=== PATIENT | male | born 1955 | race Caucasian/White ===

== ENCOUNTER → 2017-09-16 | Day surgery (SDC) | payer BC ==
[~2017-09-16] MED LIST: AMLODIPINE BESYL5 MG PO; BUPIVACAINE 0.5%/EPI 30 ML SDV INJ ONE; CEFAZOLIN SOD 2 GM/D5W 50ML 50 ML IV ONE; CLOBETASOL1 EA/15 GM TOP; CREON DR 3,0001 EACH PO; DEXAMETHASONE SOD PHOS INJ 4 MG/ML VIAL ONE; FENTANYL CITRATE/PF 100MCG/2 ML INJ ONE; KETOROLAC TROMET5 M1 OU; KETOROLAC TROMETHAMINE 30 MG/ML VIAL ONE; LIDOCAINE HCL 2% LOCAL INJ 5 ML SDV VIAL INJ ONE; LIDOCAINE1 EA TOP; MELOXICAM7.5 MG PO; MIDAZOLAM HCL 2 MG/2 ML VIAL ONE; NAPROXEN250 MG PO; ONDANSETRON HCL INJ 2 MG/ML VIAL ONE; PREDNISOLONE ACE5 ML; PROPOFOL IV EMULSION 10 MG/ML 20 ML VIAL ONE; PROTONIX20 MG PO; SEVOFLURANE INHAL SOLN 250 ML PEN BTL ONE
--- OUTSIDE RECORDS SUMMARY | 2017-09-16 09:02 | XMS REPORT ---
Author Author [facility] Address Unknown Phone Unavailable Care Team Providers Care Storm Sash Maker Name Role Phone ROXIE BRYANT Unavailable Unavailable Problems This patient has no known problems. Allergies, Adverse Reactions, Alerts This patient has no known allergies or adverse reactions. Medications This patient has no known medications. Results Test Description Test Time Test Comments Text Results Atomic Results Result Comments CHEST 2 VIEWS [place] [address] Patient Name: KULDEEP TERRAZAS MR #: [id number] : 1955 Age/Sex: 62/M Req #: [id number] Adm Physician: Ordered by: ROXIE BRYANT MD Report #: [id number] Location: OR Room/Bed: Procedure: [id number] DX/CHEST 2 VIEWS Exam Date: Exam Time: REPORT STATUS: Signed PROCEDURE: X-RAY CHEST, TWO VIEWS COMPARISON: 2016. INDICATIONS: PRE OP FINDINGS: Lungs are well-inflated. Linear atelectatic or fibrotic changes in the right lower lung. No consolidation, pleural effusion, or pneumothorax. Stable cardiomediastinal contour with tortuosity and atherosclerotic calcification of the thoracic aorta. No pulmonary edema. No acute osseous abnormality. CONCLUSION : No acute cardiopulmonary abnormality. Dictated by: Vinicio Loya M.D. on 05/25/2017 at 17:27 Electronically approved by: Vinicio Loya M.D. on 05/25/2017 at 17:27 Dictated By: VINICIO LOYA MD 26 Transcribed By: BERONICA on 05/25/171726 COPY TO: ROXIE BRYANT MD MRI RIGHT KNEE WO [place] [address] Patient Name: KULDEEP TERRAZAS MR #: [id number] : 1955 Age/Sex: 62/M Req #: [id number] Adm Physician: Ordered by: ROXIE BRYANT MD Report #: [id number] Location: MRI Room/Bed: Procedure: [id number] MRI/MRI RIGHT KNEE WO Exam Date: 04/17/17 Exam Time : 1410 REPORT STATUS: Signed TECHNIQUE: Magnetic resonance imaging of the RIGHT KNEE was performed WITHOUT injected contrast. HISTORY: Right knee pain COMPARISON: None available. FINDINGS: LIGAMENTS AND TENDONS: ACL: Intact PCL: Intact Collateral ligaments: Intact Iliotibial band: Unremarkable Popliteal tendon: Intact Extensor mechanism: Intact JOINT: Menisci: Medial: Mildly complex tear of the posterior horn adjacent to the root junction seen on sagittal image 21 and coronal image 17. Oblique tear of the body coronal image 15. Mild extrusion. Lateral: Intact Articular Cartilage: Medial Compartment: Partial thickness cartilage loss Lateral Compartment: Partial thickness cartilage loss Patellofemoral Compartment: Partial thickness cartilage loss Joint Fluid: Small joint effusion BONE: No focal or infiltrative bone marrow replacing abnormality. No acute fracture. SOFT TISSUES: Otherwise, unremarkable. IMPRESSION: Medial meniscus tearing of the posterior horn root junction and within the meniscal body resulting in mild extrusion. Tricompartmental partial thickness cartilage loss. Small joint effusion. Signed by: Dr. Daysi Garcia M.D. on 04/17/2017 2:49 PM Dictated By: DAYSI GARCIA MD 48 Transcribed By: KRISTAN on 04/17/171448 COPY TO: ROXIE BRYANT MD
--- NOTE | 2017-09-16 12:53 | Operative Report ---
DATE OF PROCEDURE: September 16, 2017 PREOPERATIVE DIAGNOSES 1. Right knee medial meniscus tear. 2. Right knee degenerative joint disease of the knee. POSTOPERATIVE DIAGNOSES 1. Right knee medial meniscus tear. 2. Right knee lateral meniscus tear. 3. Right knee degenerative joint disease of the knee. 4. Right knee symptomatic medial shelf plica. PROCEDURES PERFORMED 1. Right knee examination under anesthesia. 2. Right knee arthroscopy. 3. Right knee partial medial meniscectomy. 4. Right knee partial lateral meniscectomy. 5. Right knee chondroplasties of patella, trochlea, medial femoral condyle, medial tibial plateau, lateral femoral condyle, lateral tibial plateau, and a resection of medial shelf plica. PLAY BACK OPERATOR: None. ANESTHESIA: General endotracheal intubation anesthesia. IV FLUIDS: Per the anesthesia record. DESCRIPTION OF PROCEDURE: Mr. Sumner was taken to the operating room and placed in the supine position on the operating table. Following induction of general anesthesia as well as endotracheal intubation, the patient's right lower extremity was examined under anesthesia. He was found to have a mild effusion within the knee joint. His ligaments were stable. His knee motion was intact. He has obvious changes about the knee consistent with arthritis. The patient's lower extremity was prepped and draped in the standard surgical fashion. A 2-portal technique was used to provide this patient arthroscopic evaluation of the knee joint. Examination of the suprapatellar pouch, medial and lateral gutters found no evidence of loose bodies. There was, however, evidence of chondromalacia of the patellar and trochlear surfaces. There was also a medial shelf plica interdigitating between the patella and trochlea. The scope was advanced to the medial compartment. Examination of the medial compartment demonstrated a torn posterior horn of the medial meniscus. There was also chondromalacia of the articulating surfaces. A combination of biting forceps and a motorized shaver was used to resect the torn portion of the meniscus. Chondroplasties of the medial femoral condyle and medial tibial plateau were performed at this time. Scope was advanced into the intercondylar notch. The anterior cruciate was identified and found to be intact. Scope was advanced in the lateral compartment. There was chondromalacia of the articulating surfaces. There was also an area of tear in the central aspect of the lateral meniscus. A combination of biting forceps and a motorized shaver was used to resect the torn portion of the meniscus. Chondroplasties of the lateral femoral condyle and lateral tibial plateau were performed at this time. Scope was then placed in the suprapatellar pouch, and chondroplasties of the patella and trochlea were performed. The medial shelf plica was resected. The knee was deflated of its sterile normal saline. Each of the portal sites were closed using 4-0 nylon suture. Portal sites as well as the knee itself were injected with 0.5% Marcaine with epinephrine. Sterile dressings were applied. Patient was awakened and taken to the postanesthesia care unit in stable condition. Job#: [id number]
== END | disposition home or self-care (01) ==
LOC: OR 09:00
PROVIDERS: ATTEND Specialist
DX: S83.241A Other tear of medial meniscus, current injury, right knee, initial encounter (principal); S83.281A Other tear of lateral meniscus, current injury, right knee, initial encounter; M17.11 Unilateral primary osteoarthritis, right knee; M67.51 Plica syndrome, right knee; M22.41 Chondromalacia patellae, right knee; I10 Essential (primary) hypertension; K86.9 Disease of pancreas, unspecified; B19.20 Unspecified viral hepatitis C without hepatic coma; X58.XXXA Exposure to other specified factors, initial encounter; Z01.810 Encounter for preprocedural cardiovascular examination
CPT/HCPCS: 29880; 93005; J1100; J1885; J2001; J2250; J2405

== ENCOUNTER 2017-11-22 12:30 | Observation (INO) | payer BC ==
[~2017-11-22] VITALS: Ht 167.6 cm; Wt 86.2 kg
[~2017-11-22 12:30] MED LIST changes: -BUPIVACAINE 0.5%/EPI 30 ML SDV INJ ONE; -CEFAZOLIN SOD 2 GM/D5W 50ML 50 ML IV ONE; -DEXAMETHASONE SOD PHOS INJ 4 MG/ML VIAL ONE; -FENTANYL CITRATE/PF 100MCG/2 ML INJ ONE; -KETOROLAC TROMETHAMINE 30 MG/ML VIAL ONE; -LIDOCAINE HCL 2% LOCAL INJ 5 ML SDV VIAL INJ ONE; -MIDAZOLAM HCL 2 MG/2 ML VIAL ONE; -ONDANSETRON HCL INJ 2 MG/ML VIAL ONE; -PROPOFOL IV EMULSION 10 MG/ML 20 ML VIAL ONE; -SEVOFLURANE INHAL SOLN 250 ML PEN BTL ONE
[2017-11-22 12:49] VITALS: BP 142/87
[2017-11-22 12:50] VITALS: BP 142/87
[2017-11-22] MEDS ORDERED: ASPIRIN 325 MG TAB PO SCH (15:00)
[2017-11-22 16:34] VITALS: BP 126/88
[2017-11-22] MEDS ORDERED: ONDANSETRON HCL INJ 2 MG/ML VIAL IV PRN (17:30)
[2017-11-22] MEDS ORDERED: ACETAMINOPHEN 325 MG TAB PO PRN (17:30)
[2017-11-22] MEDS ORDERED: HYDRALAZINE HCL 20 MG/ML VIAL IV PRN (17:30)
[2017-11-22] MEDS: FAMOTIDINE 20 MG TAB PO SCH (17:36)
[2017-11-22] MEDS: ASPIRIN 325 MG TAB PO SCH (17:36)
[2017-11-22 20:00] VITALS: BP 126/88
[2017-11-22 20:55] VITALS: BP 113/66
[2017-11-23] VITALS (7 sets, daily range): BP systolic 107–142; BP diastolic 58–83
[2017-11-23 06:27] LABS: BASOPHILS # (AUTO) 0.1 (0.0-0.1); BASOPHILS % 1.2 % (0.0-1.0); EOSINOPHILS # (AUTO) 0.2 (0.0-0.4); EOSINOPHILS % 3.8 % (0.0-6.0); HEMATOCRIT 41.3 % (38.2-49.6); HEMOGLOBIN 14.1 g/dL (14.0-18.0); LYMPHOCYTES # (AUTO) 1.7 (1.0-3.2); LYMPHOCYTES % 27.9 % (18.0-39.1); MEAN CORPUSCULAR HEMOGLOBIN 28.4 pg (28-32); MEAN CORPUSCULAR HGB CONC 34.1 g/dL (31-35); MEAN CORPUSCULAR VOLUME 83.3 fL (81-99); MONOCYTES # (AUTO) 0.7 (0.2-0.8); MONOCYTES % 11.4 % (4.4-11.3); NEUTROPHILS # (AUTO) 3.3 (2.1-6.9); NEUTROPHILS % 55.2 % (38.7-80.0); PLATELET COUNT 214 x10e3/uL (140-360); RED BLOOD COUNT 4.96 x10e6/uL (4.3-5.7); RED CELL DISTRIBUTION WIDTH 12.9 % (11.7-14.4)
[2017-11-23 06:50] LABS: ANION GAP 10.4 mmol/L (8-16); BLOOD UREA NITROGEN 12 mg/dL (7-26); BUN/CREATININE RATIO 11 (6-25); CALCIUM 9.1 mg/dL (8.4-10.2); CARBON DIOXIDE 27 mmol/L (22-29); CHLORIDE 107 mmol/L (98-107); CHOL/HDL RATIO 5.2 (3.9-4.7); CHOLESTEROL 145 MD/DL (0-199); CREATININE, SERUM 1.05 mg/dL (0.72-1.25); EST GLOMERULAR FILTRATION RATE > 60 ML/MIN (60-); GLUCOSE 97 mg/dL (74-118); HDL CHOLESTEROL 28 MG/DL (40-60); LDL CHOLESTEROL 100 MG/DL (60-130); POTASSIUM 4.4 mmol/L (3.5-5.1); SODIUM 140 mmol/L (136-145); TRIGLYCERIDES 85 MG/DL (0-149)
[2017-11-23 06:51] LABS: B-TYPE NATRIURETIC PEPTIDE2 < 10.0 pg/mL (0-100)
[2017-11-23 07:18] LABS: FREE T4 (FREE THYROXINE) 0.93 ng/dL (0.9-1.8); THYROID STIMULATING HORMONE 3.022 uIU/mL (0.350-4.940)
[2017-11-23] MEDS: FAMOTIDINE 20 MG TAB PO SCH (08:15)
[2017-11-23] MEDS: AMLODIPINE BESYLATE 5 MG TAB PO SCH (08:15)
[2017-11-23] MEDS: ASPIRIN 325 MG TAB PO SCH (08:15)
--- NOTE | 2017-11-23 11:40 | Diagnostic Imaging Report ---
Exam: Brain MRI without IV contrast History: TIA, rule out CVA, blurred vision Comparison studies: None Technique: Axial coronal T2 FLAIR, sagittal and axial T2 FS, axial T1 FLAIR, axial T2*GRE and axial DWI. Intravenous contrast: None Findings: Scalp: Normal in signal. No masses. Bone marrow: Normal in signal intensity. Brain sulci: Appropriate for age. Ventricles: Normal in size. No hydrocephalus. Extra axial spaces: No mass, no fluid collection. Parenchyma: No mass, hemorrhage or acute ischemia. A nonspecific 8 mm T2 FLAIR hyperintense focus at the junction of the left precentral and subtle central gyri is without associated restricted diffusion and is most compatible with chronic insult with focal gliosis. Suprasellar region: No abnormalities. Craniocervical junction: Patent foramen magnum. No Chiari malformation. Vessels: Normal flow-voids in the arteries and sinuses. IMPRESSION: 1. No acute ischemia or other acute intracranial abnormalities. 2. Small chronic left inferior precentral insult. Signed by: Dr. Esteban Goodman M.D. on 11/23/2017 11:36 AM
--- NOTE | 2017-11-23 15:11 | Consultation ---
DATE OF CONSULTATION: November 23, 2017 NEUROLOGY CONSULTATION HISTORY OF PRESENT ILLNESS: Mr. Sumner is a 62-year-old right hand dominant man with past medical history significant for hypertension, admitted to [facility] on November 22, 2017, with symptoms concerning for a transient ischemic attack. At approximately 0915 on the day of admission, the patient was standing at [employer] when he experienced the acute onset of diplopia followed by blurred vision and generalized weakness. Mr. Sumner does not report dysarthria, dysphasia, facial droop, hemiparesis, or hemihypesthesia. He does report poor balance and gait impairment, possible dizziness and mild confusion associated with the above symptoms. He does not report a headache associated with the above symptoms. Following symptom onset, a fellow parishioner helped the patient to a chair, where he remained until the symptoms resolved. Mr. Sumner reports spontaneous resolution of the symptoms after approximately 10 minutes. At that time, the patient's helped him to their car and took him to a [facility] emergency center for further evaluation. While in the emergency center, the patient's vital signs and neurological examination were reportedly within normal limits/nonfocal. Blood work and a CT of the brain without contrast were reportedly normal. However, the physician at the [facility] emergency center recommended the patient be transferred to [facility] for admission under observation status for further evaluation and treatment of a suspected transient ischemic attack. Mr. Sumner reports having a syncopal event several months ago. At that time, he underwent cardiac evaluation but not neurological evaluation. Mr. Sumner endorses a history of intermittent dizziness which is further described as lightheadedness. The dizziness is improved by eating something sweet. REVIEW OF SYSTEMS: Confusion, blurred vision, diplopia, generalized weakness, impairment of balance and gait, dizziness. PAST MEDICAL HISTORY: Hypertension, possible osteoarthritis, gastroesophageal reflux disease, hepatitis C (treated), cholelithiasis, eczema. PAST SURGICAL HISTORY: Bilateral cataract surgery in August 2017, right knee arthroscopy in September 2017, surgery to repair a right index finger injury, cardiac catheterization times 2, right foreleg fracture (did not require surgery). PAST HOSPITALIZATIONS: Surgeries/procedures as listed, pancreatitis. FAMILY HISTORY: The patient's paternal and maternal grandparents are . Their medical histories are unknown. The patient's father is from a stroke. The patient's mother is . She had diabetes mellitus, coronary artery disease, and migraines. The patient had three sisters and one brother. The other sister is alive. She does have a history of breast cancer. A 2nd sister is alive and healthy. A 3rd sister is from lymphoma. Mr. Sumner's brother is from an unknown cancer. Mr. Sumner has 2 children, a daughter and a son. Both are alive. His daughter has migraines. His son is healthy. SOCIAL HISTORY: The patient is . He completed school through the 11th grade. 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 The patient does report a remote history of tobacco use. He quit smoking cigarettes approximately 17 years ago. The patient has not consumed alcohol in approximately 30 years. He has not used recreational drugs in approximately 28 years. HOME MEDICATIONS: Amlodipine 5 mg by mouth daily, Protonix 40 mg by mouth daily, clobetasol propionate 0.5% topical, Ketorolac tromethamine 5 mL drops, prednisolone acetate 5 mL drops suspension. ALLERGIES: NO KNOWN DRUG ALLERGIES. NO KNOWN FOOD ALLERGIES. NO KNOWN ALLERGIES TO LATEX. NO KNOWN ALLERGIES TO IODINE OR OTHER CONTRAST MATERIALS. PHYSICAL EXAMINATION: VITAL SIGNS: Height 66 inches, weight 190 pounds, BMI 30.7 kg per meter squared. Blood pressure 137/63 mmHg, pulse 63 beats per minute, respiratory rate 16 breaths per minute, oxygen saturation 96% on room air. GENERAL: The patient is awake and alert, does not appear distressed. Overweight. HEENT: Normocephalic, atraumatic. Pupils are surgical. Moist mucous membranes. NECK: Supple. No appreciable thyromegaly. No appreciable carotid bruits. CARDIOVASCULAR: S1, S2, regular rate and rhythm. Positive for a low-grade systolic ejection murmur. No rubs or gallops. RESPIRATORY: Clear to auscultation bilaterally. No wheezes, rhonchi, or rales. EXTREMITIES: The skin is warm and dry. No clubbing, cyanosis, or edema. The posterior tibial and dorsalis pedis pulses are 2+ and symmetric. SKIN: No rashes or lesions. NEUROLOGIC Memory/Attention: The patient is awake and alert, oriented to person, place, time, and situation. Cranial Nerves: Cranial nerve 1--Not tested. Cranial nerve 2, 3, 4, and 6--Pupils are surgical, extraocular movements intact, no nystagmus. Cranial nerve 5--Sensation to light touch and pinprick is intact in the bilateral V1 through V3 distributions. Strength of the temporalis and masseter muscles is within normal limits. Cranial nerve 7--The face is symmetric as are all facial movements. Strength is within normal limits. Cranial nerve 8--Hearing is intact to finger rub bilaterally. Cranial nerve 9, 10--The soft palate elevates equally and symmetrically. Cranial nerve 11--Normal strength of the bilateral sternocleidomastoid and trapezius muscles. Cranial nerve 12--The tongue protrudes midline and moves symmetrically from side to side. Strength: Bulk is normal. Strength is 5/5 in the bilateral deltoids, biceps, triceps, wrist flexors and extensors, finger flexors and extensors, intrinsic hand muscles, hip flexors, knee flexors and extensors, ankle dorsiflexion and plantarflexion, and intrinsic foot muscles. Tone is normal. DTRs: Deep tendon reflexes are 1+ and symmetric at the triceps, biceps, brachioradialis, patellas, and Achilles. Plantar responses are flexor bilaterally. Sensation: Sensation is intact to light touch and pinprick in both arms and both legs. Cerebellar: Prrgvt-ngxx-eicqur and heel-hines movements are intact without dysmetria or other impairment. Gait: Deferred. Speech: Spontaneous speech is normal without appreciable dysarthria or aphasia. Repetition is intact. Involuntary Movements: None. Pronator Drift: None. LABORATORY DATA: Sodium 140, potassium 4.4, chloride 107, carbon dioxide 27, anion gap 10.4, BUN 12, creatinine 1.05, estimated GFR greater than 60, BUN to creatinine ratio 11, glucose 97, calcium 9.1, magnesium 2.1. B-natriuretic peptide less than 10.0. Hemoglobin A1c 5.2. Total cholesterol 145, triglyceride 85, LDL cholesterol 100, HDL cholesterol 28. TSH 3.022, free T4 0.93. CBC with differential and platelets reveals a white blood cell count of 6.03 with 55.2% neutrophils, 27.9% lymphocytes, 11.4% monocytes, 3.8% eosinophils, and 1.2% basophils. The hemoglobin and hematocrit are 14.1 and 41.3, respectively. The platelet count is 214. DIAGNOSTIC STUDIES: MRI of the brain without contrast November 23, 2017: On my review, there is no evidence of recent large territorial ischemia, hemorrhage, mass, or mass effect. There is a remote lacunar infarct at the junction of the left precentral and central gyri. ASSESSMENT AND PLAN: Mr. Sumner is a 62-year-old right hand dominant man with past medical history significant for hypertension and a remote lacunar infarct (undiagnosed), admitted to [facility] on November 22, 2017, with a posterior circulation transient ischemic attack. At present, the patient's neurological examination is nonfocal. His laboratory data and other diagnostic studies have been reviewed and are documented above. RECOMMENDATIONS: 1. An echocardiogram has been ordered and is pending. 2. Bilateral carotid artery ultrasound with Doppler will be ordered. 3. The patient will be placed on telemetry to evaluate for paroxysmal cardiac arrhythmia. 4. Mr. Sumner will be prescribed aspirin 325 mg by mouth daily for stroke prophylaxis. 5. The patient's blood pressures are at goal. Continue with current antihypertensive medication. 6. The patient's total cholesterol is less than 200. However, his LDL cholesterol is above the recommended goal of 70. The patient will be prescribed atorvastatin 20 mg by mouth at bedtime daily in an effort to bring his LDL cholesterol closer to goal. 7. The patient's hemoglobin A1c is 5.2. No further evaluation or treatment is indicated. 8. GI prophylaxis with Pepcid 20 mg by mouth twice daily before meals as per the primary service. DVT prophylaxis with Lovenox 40 mg subcutaneously daily. 9. Speech and physical therapy consultations will not be ordered because the patient has no focal deficits. 10. Defer treatment of the remaining medical comorbidities to the primary and other services. Thank you for this consultation. I will continue to follow this patient while he remains in the hospital. Time spent: 50 minutes. Job#: [id number] EV THUAN
[2017-11-23] MEDS ORDERED: ENOXAPARIN SOD INJ 40 MG/0.4 ML SYR SC SCH (17:00)
--- NOTE | 2017-11-23 18:49 | History and Physical ---
PRIMARY CARE PHYSICIAN: Dr. Hubbard CHIEF COMPLAINT: Vision changes. HISTORY OF PRESENT ILLNESS: This is a 62-year-old man with a history of hypertension and cigarette use, now while he was at [employer] the patient while standing the patient felt somewhat weak, double vision and then it became blurred. Then he got lightheaded and felt like he was going to pass out. He held on to the alberto next to him. He was taken to the neighbor's. CT scan was obtained, which was negative. Recommended to obtain an MRI and was sent here for further evaluation and management. Currently, the patient is symptom free. All of his symptoms have resolved. Denies any chest pain or shortness of breath. Denies any dizziness. PAST MEDICAL HISTORY: Acute pancreatitis, degenerative joint disease, GERD, hypertension, cigarette use. PAST SURGICAL HISTORY: Cataract surgery in August 2017, knee arthroscopy, leg fracture repair, right index finger. ALLERGIES: PER ELECTRONIC MEDICAL RECORD. FAMILY HISTORY/SOCIAL HISTORY: Patient is . He has 2 children. No alcohol or illicits. Quit cigarettes 17 years ago. MEDICATIONS: Per electronic medical record. REVIEW OF SYSTEMS: Denies any dizziness or chest pain. PHYSICAL EXAMINATION VITAL SIGNS: Have been reviewed. GENERAL: A tired-appearing man resting in bed. HEENT: Anicteric. Pupils respond to light. No oral lesions. CARDIOVASCULAR: Normal S1 and S2. LUNGS: Moderate breath sounds. ABDOMEN: Soft, nontender and nondistended. EXTREMITIES: No edema or calf tenderness. NEUROLOGICAL: He is alert and oriented times 3. Moves all extremities. No focal deficit. Motor strength is 5/5 in all extremities. He has no visual field deficits. SKIN: Dry. PSYCHIATRIC: Normal affect. LABS: Reviewed. MEDICATIONS: Reviewed. ASSESSMENT: This is a 62-year-old man with: 1. Transient ischemic attack. 2. Obesity: Body mass index is 30.7. 4. Chronic brain infarct. 5. Hypertension. 6. Pericardial effusion, trivial. 7. Gastroesophageal reflux disease. 8. Degenerative joint disease. PLAN 1. MRI of the brain is negative. 2. Ultrasound of the carotid negative. 3. History of pericardial effusion. His present ejection fraction is normal at 60% to 65%. 4. Continue aspirin 325 mg. 5. Continue amlodipine. Will continue Lipitor as well. Will obtain a lipid panel. 6. Physical therapy consultation. 7. His urinalysis was negative for any sign of infection. 8. History of cigarette use. The patient quit 17 years ago. 9. Prophylaxis. Will use Lovenox and Pepcid. 10. Disposition. Monitor overnight by telemetry and possible discharge tomorrow morning. Job#: [id number] RI
[2017-11-23] MEDS ORDERED: ATORVASTATIN 20 MG TAB PO SCH (21:00)
[2017-11-24] VITALS: BP 139/83
[2017-11-24 04:00] VITALS: BP 123/58
[2017-11-24 04:33] LABS: BASOPHILS # (AUTO) 0.1 (0.0-0.1); BASOPHILS % 1.1 % (0.0-1.0); EOSINOPHILS # (AUTO) 0.3 (0.0-0.4); HEMOGLOBIN 14.5 g/dL (14.0-18.0); LYMPHOCYTES # (AUTO) 1.7 (1.0-3.2); LYMPHOCYTES % 25.9 % (18.0-39.1); MEAN CORPUSCULAR HEMOGLOBIN 28.5 pg (28-32); MEAN CORPUSCULAR HGB CONC 34.5 g/dL (31-35); MEAN CORPUSCULAR VOLUME 82.5 fL (81-99); MONOCYTES # (AUTO) 0.7 (0.2-0.8); MONOCYTES % 11.3 % (4.4-11.3); NEUTROPHILS # (AUTO) 3.7 (2.1-6.9); NEUTROPHILS % 56.9 % (38.7-80.0); PLATELET COUNT 213 x10e3/uL (140-360); RED BLOOD COUNT 5.09 x10e6/uL (4.3-5.7); RED CELL DISTRIBUTION WIDTH 12.7 % (11.7-14.4)
[2017-11-24 04:48] LABS: ANION GAP 12.1 mmol/L (8-16); BLOOD UREA NITROGEN 12 mg/dL (7-26); BUN/CREATININE RATIO 11 (6-25); CALCIUM 9.1 mg/dL (8.4-10.2); CARBON DIOXIDE 24 mmol/L (22-29); CHLORIDE 103 mmol/L (98-107); CREATININE, SERUM 1.07 mg/dL (0.72-1.25); EST GLOMERULAR FILTRATION RATE > 60 ML/MIN (60-); GLUCOSE 103 mg/dL (74-118); MAGNESIUM 2.1 MG/DL (1.3-2.1); POTASSIUM 4.1 mmol/L (3.5-5.1); SODIUM 135 mmol/L (136-145)
[2017-11-24 05:02] LABS: CHOL/HDL RATIO 5.6 (3.9-4.7)
[2017-11-24] MEDS ORDERED: FAMOTIDINE 20 MG TAB PO SCH (07:30)
[2017-11-24] MEDS ORDERED: PANTOPRAZOLE SOD 40 MG TABEC PO SCH (07:30)
[2017-11-24 07:35] VITALS: BP 123/58
[2017-11-24 08:24] VITALS: BP 161/87
[2017-11-24] MEDS: ASPIRIN 325 MG TAB PO SCH (09:00)
[2017-11-24] MEDS ORDERED: CLOBETASOL PROPIONATE 0.05% CRM 15 GM TUBE TOP SCH (09:00)
[2017-11-24] MEDS ORDERED: PANTOPRAZOLE SODIUM PO SCH (09:00)
[2017-11-24] MEDS: AMLODIPINE BESYLATE 5 MG TAB PO SCH (09:00)
[2017-11-24] MEDS ORDERED: ASPIRIN325 MG PO (09:05)
[2017-11-24] MEDS ORDERED: LIPITOR20 MG PO (09:05)
[2017-11-24] MEDS ORDERED: NORVASC10 MG PO (09:19)
[2017-11-24] MEDS ORDERED: AMLODIPINE BESYLATE 5 MG TAB PO ONE (09:30)
[2017-11-24] MEDS ORDERED: ENOXAPARIN SOD INJ 40 MG/0.4 ML SYR SC SCH (17:00)
--- NOTE | 2017-11-24 19:00 | Discharge Summary ---
ADMITTING DIAGNOSES 1. Transient ischemic attack. 2. Obesity. 3. Hypertension. 4. Pericardial effusion. 5. Gastroesophageal reflux disease. 6. Degenerative joint disease. DISCHARGE DIAGNOSES 1. Transient ischemic attack. 2. Obesity. 3. Hypertension. 4. Pericardial effusion. 5. Gastroesophageal reflux disease. 6. Degenerative joint disease. 7. Hyperlipidemia. HISTORY: The patient has a history of pancreatitis, degenerative joint disease, GERD, hypertension, and cigarette use. Surgical history includes cataract surgery in August 2017, knee arthroscopy, leg fracture repair, right index finger surgery. HOSPITAL COURSE: This 62-year-old male said that while at [employer] he was standing and felt somewhat weak. Double vision occurred, and then it became blurry. He got lightheaded and felt like he was going to pass out so he held on to the alberto next to him. [facility] where a CAT scan was obtained of the brain, which was negative. He was transferred to [facility] for further evaluation. Upon transfer, the patient had an echo, which showed EF of 60% to 65% with trivial pericardial effusion and LVH. He had a carotid Doppler which was negative. EKG showed normal sinus rhythm. Neurology was consulted who ordered an MRI, which showed a small chronic left inferior precentral insult, but no acute ischemia or abnormality. The patient was started on aspirin 325 daily and for his hypercholesterolemia. Hemoglobin was found to be 5.2. The patient was asymptomatic by the time he was seen by neurology, so speech therapy and physical therapy were not recommended. At the time of discharge, WBC was 6.56, hemoglobin 14.5, hematocrit 42. Sodium 135, potassium 4.1, creatinine 1.07, GFR over 60. The patient will discharge home and follow up with Dr. Tatum in 1 to 2 weeks as well as with primary care in 1 to 2 weeks. He will continue his home medicines of Norvasc and Protonix as well as aspirin and Lipitor. The patient is ready for discharge home. Agrees to the discharge plan. Neurology has approved the discharge as well. Dictated by: Sharmila Lee NP CASSIE RICK MD Job#: [id number]
== END 2017-11-24 11:45 | disposition home or self-care (01) ==
LOC: MED/SURG3 12:30
PROVIDERS: ADMIT Internal Medicine; ATTEND Internal Medicine
DX: G45.9 Transient cerebral ischemic attack, unspecified (principal); E66.9 Obesity, unspecified; Z68.37 Body mass index [BMI] 37.0-37.9, adult; I10 Essential (primary) hypertension; M19.90 Unspecified osteoarthritis, unspecified site; K21.9 Gastro-esophageal reflux disease without esophagitis; I31.3 Pericardial effusion (noninflammatory); Z86.73 Personal history of transient ischemic attack (TIA), and cerebral infarction without residual deficits; Z87.891 Personal history of nicotine dependence; E78.5 Hyperlipidemia, unspecified; Z72.0 Tobacco use
CPT/HCPCS: 36415 ×2; 70551; 80048 ×2; 80061 ×2; 83036; 83735 ×2; 83880; 84439; 84443; 85025 ×2; 93005; 93306; 93880; G0378 ×3; J1650; S0164

== ENCOUNTER → 2018-06-30 | Day surgery (SDC) | payer BC ==
[2018-06-29 12:48] LABS: BASOPHILS # (AUTO) 0.1 (0.0-0.1); EOSINOPHILS # (AUTO) 0.3 (0.0-0.4); EOSINOPHILS % 4.4 % (0.0-6.0); HEMATOCRIT 44.1 % (38.2-49.6); HEMOGLOBIN 14.6 g/dL (14.0-18.0); LYMPHOCYTES % 27.9 % (18.0-39.1); MEAN CORPUSCULAR HEMOGLOBIN 28.5 pg (28-32); MEAN CORPUSCULAR HGB CONC 33.1 g/dL (31-35); MEAN CORPUSCULAR VOLUME 86.1 fL (81-99); MONOCYTES % 13.4 % (4.4-11.3); NEUTROPHILS # (AUTO) 3.9 (2.1-6.9); NEUTROPHILS % 52.9 % (38.7-80.0); PLATELET COUNT 226 x10e3/uL (140-360); RED BLOOD COUNT 5.12 x10e6/uL (4.3-5.7); RED CELL DISTRIBUTION WIDTH 11.9 % (11.7-14.4)
[~2018-06-30] MED LIST changes: +ASPIRIN325 MG PO; +ATORVASTATIN CA20 MG PO; +LIDOCAINE HCL 2% LOCAL INJ 5 ML SDV VIAL INJ ONE; +LIPITOR20 MG PO; +LOSARTAN POTASS50 MG PO; +NORVASC10 MG PO; +PROPOFOL IV EMULSION 10 MG/ML 20 ML VIAL ONE; +TRAZODONE HCL50 MG PO
--- OUTSIDE RECORDS SUMMARY | 2018-06-30 05:17 | XMS REPORT | Clinical Summary ---
Author Author [facility] Address Unknown Phone Unavailable Care Team Providers Care School Age Program Associate Name Role Phone Angelo Hubbard MD PCP Allergies Not on File Medications Not on file Active Problems Not on file Encounters Care Team Description Date Type Specialty Janak Redding MD Right knee pain, unspecified chronicity (Primary Dx) 10/07/2017 Transcribe Physical Therapy Orders Janak Redding MD 10/06/2017 Telephone Physical Therapy after 06/29/2017 Social History Date Tobacco Use Types Packs/Day Years Used Never Assessed Sex Assigned at Date Recorded Not on file Industry Job Start Date Occupation Not on file Not on file Not on file Travel End Travel History Travel Start No recent travel history available. Last Filed Vital Signs Not on file Plan of Treatment Health Maintenance Due Date Last Done Comments COLON CANCER SCREENING 2003 SHINGLES VACCINES ( of 2003 2) INFLUENZA VACCINE 01/06/2018 04/12/2015, 04/28/2014, 04/12/2013, Additional history exists PNEUMOCOCCAL-13 2018 PNEUMOCOCCAL Completed 06/23/2008 POLYSACCHARIDE VACCINE AGE 65 AND OVER Results Not on fileafter 06/29/2017 Insurance Payer Benefit Subscriber ID Type Phone Address Plan / Group BCBS BCBS xxxxxxxxxxxx PPO CHOICE PPO/[employer] PPO Advance Directives Patient has advance care planning documents on file. For more information, pollo ibrahim contact: [facility] [address] [place] [id number]
[2018-06-30 08:40] VITALS: BP 135/81
== END | disposition home or self-care (01) ==
LOC: OR 05:14
PROVIDERS: ATTEND Internal Medicine Gastroenterology
DX: K52.9 Noninfective gastroenteritis and colitis, unspecified (principal); K62.1 Rectal polyp; K29.50 Unspecified chronic gastritis without bleeding; Z71.3 Dietary counseling and surveillance; R06.83 Snoring; I10 Essential (primary) hypertension; E66.9 Obesity, unspecified; M19.90 Unspecified osteoarthritis, unspecified site; Z01.810 Encounter for preprocedural cardiovascular examination; Z01.812 Encounter for preprocedural laboratory examination; Z79.82 Long term (current) use of aspirin; Z68.32 Body mass index [BMI] 32.0-32.9, adult; Z86.73 Personal history of transient ischemic attack (TIA), and cerebral infarction without residual deficits; Z87.891 Personal history of nicotine dependence
CPT/HCPCS: 36415; 43239; 45380; 45385; 85025; 93005; J2001; J2704

== ENCOUNTER → 2018-07-30 | Outpatient (CLI) | payer BC ==
[~2018-07-30] MED LIST changes: -LIDOCAINE HCL 2% LOCAL INJ 5 ML SDV VIAL INJ ONE; -PROPOFOL IV EMULSION 10 MG/ML 20 ML VIAL ONE
== END ==
LOC: SLEEP 19:39
PROVIDERS: ATTEND Internal Medicine
DX: G47.30 Sleep apnea, unspecified (principal); F51.01 Primary insomnia
CPT/HCPCS: 95810

== ENCOUNTER → 2018-09-09 | Outpatient (CLI) | payer BC | LOC: SLEEP 19:55 | PROVIDERS: ATTEND Internal Medicine | DX: G47.33 Obstructive sleep apnea (adult) (pediatric) (principal) | CPT/HCPCS: 95811 ==